=== PATIENT | female | born 1985 | race Caucasian/White ===

== ENCOUNTER 2017-02-21 02:29 | Emergency (ER) | payer OTHER ==
--- NOTE | 2017-02-21 02:34 | EDM.PDOC ---
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 - Related Data Allergies Allergy/AdvReac Type Severity Reaction Status Date / Time No Known Allergies Allergy Verified 02/21/17 02:39 Home Meds: Home Meds Albuterol Sulfate 2.5 mg IH Q4H PRN 02/21/17 [History] Ibuprofen 800 mg PO Q8H 02/21/17 [History] Sertraline [Zoloft] 50 mg PO DAILY 02/21/17 [History] Review of Systems - Review of Systems Review Of Systems: ROS reveals no pertinent complaints other than HPI. ED EXAM, GENERAL - Physical Exam Exam: See Below Exam Limited By: No Limitations General Appearance: Alert, WD/WN, Mild Distress, Other (ankle pain) Ears: Hearing Grossly Normal Throat/Mouth: Normal Voice, No Airway Compromise Head: Atraumatic Neck: Non-Tender, Full Range of Motion Respiratory/Chest: No Respiratory Distress Cardiovascular: Regular Rate, Rhythm GI/Abdominal: Soft, Non-Tender Extremities: Limited Range of Motion, Other (right ankle swollen tender R/P, NV wnl, gait limited to pain) Neurological: Alert, Oriented, Normal Cognition, No Motor/Sensory Deficits Psychiatric: Tearful Skin Exam: Warm, Dry, Normal Color Lymphatic: No Adenopathy Course - Vital Signs Last Recorded V/S: Last Vital Signs Temp 36.9 C 02/21/17 02:35 Pulse 98 02/21/17 02:35 Resp 20 02/21/17 02:35 BP 119/77 02/21/17 02:35 Pulse Ox 98 02/21/17 02:35 - Orders/Labs/Meds Orders: Active Orders 24 hr Category Date Time Status Ankle Min 3V Rt [CR] Urgent Exams 02/21/17 02:31 Taken - Re-Assessments/Exams Free Text/Narrative Re-Assessment/Exam: 02/21/17 03:04 results discussed with pt. Departure - Departure Time of Disposition: 03:04 Disposition: Home, Self-Care 01 Condition: Good Clinical Impression: Fracture of fibula - Discharge Information Instructions: Ankle Fracture, [id number] Forms: ED Department Discharge Additional Instructions: 1) elevate leg as much as possible 2) ice intermittently for swelling 3) wear cast boot and use crutches 4) see family doctor or clinic Wednesday for ORTHOPEDIC REFERRAL rx [email or web address] em x 1 - My Orders Last 24 Hours: My Active Orders 02/21/17 02:31 Ankle Min 3V Rt [CR] Urgent - Assessment/Plan Last 24 Hours: My Active Orders 02/21/17 02:31 Ankle Min 3V Rt [CR] Urgent
[2017-02-21 02:35] VITALS: BP 119/77
[2017-02-21] MEDS ORDERED: Acetaminophen/HYDROcodone 325-10 MG Tab ONE (03:05)
[2017-02-21] MEDS ORDERED: Acetaminophen/HYDROcodone 325-10 MG Tab PO ONE (03:05)
== END 2017-02-21 03:12 | disposition home or self-care (01) ==
LOC: DL.ED 02:29
DX: S82.401A Unspecified fracture of shaft of right fibula, initial encounter for closed fracture (principal); Z79.899 Other long term (current) drug therapy; W18.40XA Slipping, tripping and stumbling without falling, unspecified, initial encounter
CPT/HCPCS: 73610-RT; 99283; A9270-GY